=== PATIENT | male | born 1990 | race Two or more races ===

== ENCOUNTER 2018-04-29 08:37 | Emergency (ER) | payer OTHER ==
--- NOTE | 2018-04-29 09:07 | EDM.PDOC ---
ED HPI GENERAL MEDICAL PROBLEM - General Chief Complaint: Chest Pain Stated Complaint: CHEST PAIN Time Seen by Provider: 04/29/18 08:47 Source of Information: Reports: Patient, RN Notes Reviewed - History of Present Illness INITIAL COMMENTS - FREE TEXT/NARRATIVE: 28-year-old male comes in with intermittent left-sided chest discomfort. He states this started about a week ago. The pain is worse with certain types of movement, especially lifting and also at times present with deep breathing. Not aware of any particular injury. Does do a lot of lifting with his work out in [place]. No fall or blow to the chest he is aware of. He has not been ill with fever chills cough vomiting or other unusual symptoms. Also of concern he states he almost "passed out yesterday morning. Been to the bathroom and while standing walking became lightheaded, dizzy. He did not pass out completely but states that he did end up on the floor with an episode of near syncope. Left Chest Pain Score (Numeric/FACES): 4 - Related Data Allergies Allergy/AdvReac Type Severity Reaction Status Date / Time No Known Allergies Allergy Verified 04/29/18 08:46 Home Meds: Home Meds . [No Known Home Meds] 04/29/18 [History] Past Medical History - Past Surgical History HEENT Surgical History: Reports: Adenoidectomy, Myringotomy w Tube(s), Oral Surgery, Tonsillectomy Social & Family History - Tobacco Use Smoking Status *Q: Never Smoker - Caffeine Use Caffeine Use: Reports: Coffee - Recreational Drug Use Recreational Drug Use: No ED ROS GENERAL - Review of Systems Review Of Systems: See Below Constitutional: Denies: Fever, Chills HEENT: Denies: Throat Pain Respiratory: Reports: Shortness of Breath, Pleuritic Chest Pain (Intermittent). Denies: Wheezing (Occasional), Cough (, especially with deep breathing) Cardiovascular: Reports: Chest Pain GI/Abdominal: Denies: Abdominal Pain (Off and on for about a week), Diarrhea, Vomiting Musculoskeletal: Denies: Shoulder Pain, Arm Pain, Back Pain Skin: Reports: No Symptoms Neurological: Reports: Dizziness (Gone) ED EXAM, GENERAL - Physical Exam Exam: See Below General Appearance: Alert, No Apparent Distress Eye Exam: Bilateral Eye: PERRL Throat/Mouth: Normal Inspection, Inflammation Head: Atraumatic. No: Facial Swelling Neck: Supple, Full Range of Motion Respiratory/Chest: No Respiratory Distress, Lungs Clear, Normal Breath Sounds, Other (There is an area of tenderness left lower anterior chest, no visible bruising or swelling). No: Rhonchi, Wheezing Cardiovascular: Regular Rate, Rhythm GI/Abdominal: Soft, Non-Tender. No: Guarding Back Exam: Normal Inspection Neurological: Alert, Oriented, No Motor/Sensory Deficits Skin Exam: Warm, Dry, Normal Color EKG INTERPRETATION EKG Date: 04/29/18 Rhythm: NSR [place]: Normal P-Wave: Present QRS: Other (RSR V1) ST-T: Normal QT: Normal Course - Vital Signs Last Recorded V/S: Last Vital Signs Temp 98.4 F 04/29/18 08:54 Pulse 92 04/29/18 08:54 Resp 13 04/29/18 08:54 BP 125/66 04/29/18 08:54 Pulse Ox 100 04/29/18 08:54 - Orders/Labs/Meds Orders: Active Orders 24 hr Category Date Time Status Chest 1V Frontal [CR] Stat Exams 04/29/18 09:30 Taken Labs: Laboratory Tests 04/29/18 Range/Units 09:08 WBC 9.44 H (4.23-9.07) K/mm3 RBC 5.47 (4.63-6.08) M/mm3 Hgb 16.1 (13.7-17.5) gm/L Hct 47.1 (40.1-51.0) % MCV 86.1 (79.0-92.2) fl MCH 29.4 (25.7-32.2) pg MCHC 34.2 (32.2-35.5) g/dl RDW Std Deviation 37.7 (35.1-43.9) fL Plt Count 265 (163-337) K/mm3 MPV 8.8 L (9.4-12.3) fl Neut % (Auto) 62.9 (34.0-67.9) % Lymph % (Auto) 23.6 (21.8-53.1) % [place] % (Auto) 12.0 (5.3-12.2) % Eos % (Auto) 1.3 (0.8-7.0) Baso % (Auto) 0.2 (0.1-1.2) % Neut # (Auto) 5.94 H (1.78-5.38) K/mm3 Lymph # (Auto) 2.23 (1.32-3.57) K/mm3 [place] # (Auto) 1.13 H (0.30-0.82) K/mm3 Eos # (Auto) 0.12 (0.04-0.54) K/mm3 Baso # (Auto) 0.02 (0.01-0.08) K/mm3 - Re-Assessments/Exams Free Text/Narrative Re-Assessment/Exam: 04/29/18 10:32 EKG does show RSR in the [address] elevation V2. 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 X-ray looks good, CBC normal with a hemoglobin of 16 and normal WBC. O2 sats of been running 99-100% whole time he is been here with no evidence for respiratory distress. Of note he does have definite tenderness left lower anterior chest. He did have a viral illness a couple of weeks ago so there may well be a component of pleurisy as well. Departure - Departure Time of Disposition: 09:55 Disposition: Home, Self-Care 01 Condition: Fair Clinical Impression: Chest wall pain, Pleurisy Instructions: Chest Wall Pain, [id number], Pleurisy, [id number] Referrals: PCP,None [Primary Care Provider] - Forms: ED Department Discharge Additional Instructions: Advil or ibuprofen 600 mg 3 times daily with food will help with the pain and inflammation. Tylenol in between doses if needed for extra pain relief. You can also alternate ice and heat as needed. Be sure to drink plenty of water to maintain hydration. Follow-up clinic or return to ED if you're having more dizzy spells, severe difficulty breathing or symptoms otherwise worsening in any way. - My Orders Last 24 Hours: My Active Orders 04/29/18 09:30 Chest 1V Frontal [CR] Stat - Assessment/Plan Last 24 Hours: My Active Orders 04/29/18 09:30 Chest 1V Frontal [CR] Stat
--- NOTE | 2018-04-30 18:27 | CR ---
Chest: Portable view of the chest was obtained. Comparison: No prior chest x-ray. Heart size and mediastinum are normal. Lungs are clear. Bony structures are grossly intact. Impression: 1. Nothing acute is seen on portable chest x-ray. Diagnostic code #1
== END 2018-04-29 10:14 | disposition home or self-care (01) ==
LOC: JD.ED 08:37
DX: R09.1 Pleurisy (principal); R07.89 Other chest pain
CPT/HCPCS: 36415; 71045; 71045-26; 85025; 93010; 99283; 99285